=== PATIENT | female | born 1940 | race Caucasian/White ===

== ENCOUNTER 2022-11-05 11:08 | Inpatient (IN) | payer MEDICARE ==
[~2022-11-05 11:08] MED LIST: Iopamidol 370 76% 100 ML VIAL ONE
[2022-11-05 12:04] LABS: #Basophils 0.1 10x3/uL (0.0-0.2); #Eosinphils 0.2 10x3/uL (0.0-0.5); #Monocytes 0.9 10x3/uL (0.0-1.1); #Neutrophils 5.1 10x3/uL (1.5-8.4); %Basophils 0.6 % (0.0-2.0); %Eosinophils 1.8 % (0.0-6.0); %Lymphocytes 34.3 % (18.0-47.0); %Monocytes 9.4 % (0.0-10.0); %Neutrophils 53.8 % (40.0-75.0); Hematocrit 42.2 % (34.9-44.5); Hemoglobin 13.8 g/dL (12.0-15.5); Mean Corpuscular HGB CONC 32.7 g/dL (32.0-36.0); Mean Corpuscular Hemoglobin 30.8 pg (27.0-33.0); Mean Corpuscular Volume 94.2 fl (81.6-98.3); Mean Platelet Volume 11.3 fl (7.4-10.4); Platelet Count 363 10x3/uL (150-450); RBC Distribution Width 14.2 % (11.5-14.5); Red Blood Cell (RBC) Count 4.48 10x6/uL (3.90-5.03); White Blood Cell (WBC) Count 9.6 10x3/uL (3.5-10.5)
[2022-11-05 12:14] LABS: INR-International Normal Ratio 0.9; PTT 27.2 sec (22.0-33.0); Prothrombin Time 9.9 sec (9.5-12.1)
[2022-11-05 12:15] LABS: ALT (SGPT) 16 U/L (8-55); AST (SGOT) 21 U/L (5-34); Albumin 4.7 g/dL (3.4-4.8); Alkaline Phosphatase 123 U/L (40-110); Anion Gap 19 mmol/L (10-20); BUN (Urea Nitrogen) 16 mg/dL (9.8-20.1); Bilirubin, Total 0.7 mg/dL (0.2-1.2); Calc. Creatinine Clearance 0 mL/min (70-130); Carbon Dioxide 22 mmol/L (23-31); Chloride 105 mmol/L (98-107); Estimated GFR 65; Globulin 2.8 g/dL (2.4-3.5); Glucose 94 mg/dL (83-110); Potassium 4.3 mmol/L (3.5-5.1); Protein, Total 7.5 g/dL (5.8-8.1); Sodium 142 mmol/L (136-145)
[2022-11-05 12:21] LABS: Troponin I Less than 0.010 ng/mL (< 0.028)
[2022-11-05] MEDS ORDERED: Aspirin 325 MG TAB ONE (12:55)
[2022-11-05] MEDS ORDERED: Aspirin 325 mg Enteric Coated Tablet PO SCH (13:00)
[2022-11-05] MEDS ORDERED: Ondansetron ODT 4 MG TAB PO PRN (13:04)
[2022-11-05] MEDS ORDERED: Ondansetron PF 4 MG/2 ML Vial IVP PRN (13:04)
[2022-11-05] MEDS ORDERED: Acetaminophen 325 MG TAB PO PRN (13:04)
[2022-11-05 15:25] LABS: Hemoglobin A1c 5.8 % (4.0-6.0)
[2022-11-05 15:57] VITALS: BMI 26.5
[2022-11-06 04:06] LABS: #Basophils 0.1 10x3/uL (0.0-0.2); #Eosinphils 0.2 10x3/uL (0.0-0.5); #Neutrophils 4.9 10x3/uL (1.5-8.4); %Basophils 0.5 % (0.0-2.0); %Eosinophils 2.6 % (0.0-6.0); %Lymphocytes 33.1 % (18.0-47.0); %Monocytes 11.1 % (0.0-10.0); %Neutrophils 52.4 % (40.0-75.0); Hematocrit 36.9 % (34.9-44.5); Hemoglobin 11.9 g/dL (12.0-15.5); Mean Corpuscular HGB CONC 32.2 g/dL (32.0-36.0); Mean Corpuscular Hemoglobin 30.4 pg (27.0-33.0); Mean Corpuscular Volume 94.4 fl (81.6-98.3); Mean Platelet Volume 10.9 fl (7.4-10.4); Platelet Count 309 10x3/uL (150-450); RBC Distribution Width 14.2 % (11.5-14.5); Red Blood Cell (RBC) Count 3.91 10x6/uL (3.90-5.03); White Blood Cell (WBC) Count 9.4 10x3/uL (3.5-10.5)
[2022-11-06 04:15] LABS: Anion Gap 13 mmol/L (10-20); BUN (Urea Nitrogen) 15 mg/dL (9.8-20.1); Calc. Creatinine Clearance 63 mL/min (70-130); Calcium 8.7 mg/dL (7.8-10.44); Carbon Dioxide 24 mmol/L (23-31); Cardiac Risk 3.9 (Less than 4.5); Chloride 108 mmol/L (98-107); Cholesterol 233 mg/dl (< 200 Desired); Estimated GFR 78; Glucose 105 mg/dL (83-110); HDL Cholesterol 60 mg/dL (>60 Neg Risk); LDL Cholesterol, Calculated 151 mg/dL; Sodium 141 mmol/L (136-145); Triglycerides 108 mg/dL (Less than 150)
[2022-11-06] MEDS ORDERED: Lisinopril 10 MG TAB PO SCH (10:00)
[2022-11-06] MEDS: Multivit, Therapeutic 1 TAB PO SCH (11:09)
[2022-11-06] MEDS: Cyanocobalamin (Vitamin B-12) 1,000 MCG TAB PO SCH (11:09)
[2022-11-06] MEDS: Folic Acid 1 MG TAB PO SCH (11:09)
[2022-11-06] MEDS ORDERED: hydrALAZINE 25 MG TAB PO PRN (16:01)
[2022-11-06] MEDS: Carvedilol 3.125 MG TAB PO SCH (17:19)
[2022-11-07] MEDS ORDERED: Levothyroxine Sodium 50 MCG TAB PO SCH (06:00)
[2022-11-07 08:57] VITALS: BP 147/65; TEMP 98.1
[2022-11-07] MEDS ORDERED: Lisinopril 10 MG TAB PO SCH (09:00)
[2022-11-07] MEDS ORDERED: Aspirin 81 mg Enteric Coated Tablet PO SCH (10:00)
[2022-11-07] MEDS: Multivit, Therapeutic 1 TAB PO SCH (10:21)
[2022-11-07] MEDS: Cyanocobalamin (Vitamin B-12) 1,000 MCG TAB PO SCH (10:21)
[2022-11-07] MEDS: Folic Acid 1 MG TAB PO SCH (10:21)
[2022-11-07] MEDS: Carvedilol 3.125 MG TAB PO SCH (10:21)
[2022-11-07] MEDS ORDERED: Atorvastatin Calcium 40 MG TAB PO SCH (21:00)
[2022-11-08] MEDS ORDERED: Aspirin 81 mg Enteric Coated Tablet PO SCH (09:00)
== END 2022-11-07 11:54 | disposition home or self-care (01) | DRG 69 ==
LOC: CSHERS 11:08 → CSHTELE 15:19 → OBSVTOIN 11-07 08:59
PROVIDERS: ADMIT Family Medicine; ATTEND Internal Medicine
DX: G45.9 Transient cerebral ischemic attack, unspecified (principal); I50.20 Unspecified systolic (congestive) heart failure; I42.9 Cardiomyopathy, unspecified; I13.0 Hypertensive heart and chronic kidney disease with heart failure and stage 1 through stage 4 chronic kidney disease, or unspecified chronic kidney disease; E78.5 Hyperlipidemia, unspecified; I34.0 Nonrheumatic mitral (valve) insufficiency; E03.9 Hypothyroidism, unspecified; I44.7 Left bundle-branch block, unspecified; N18.2 Chronic kidney disease, stage 2 (mild); Z90.49 Acquired absence of other specified parts of digestive tract; Z98.51 Tubal ligation status
CPT/HCPCS: 0042T; 36415; 36416; 70450; 70496; 70498; 70551; 80048; 80053; 80061; 83036; 84484; 85025; 85610; 85730; 93005; 93306; 94760; G0378; Q9967